=== PATIENT | male | born 1980 | race African-American/Black ===

== ENCOUNTER 2021-09-04 18:05 | Emergency (ER) | payer OTHER ==
[~2021-09-04] VITALS: Ht 170.2 cm; Wt 111.4 kg
[2021-09-04] MEDS ORDERED: HYDROCODONE/APAP 5MG-325MG TAB PO ONE (18:45)
[2021-09-04] MEDS ORDERED: HYDROCODONE/APAP 5MG-325MG TAB ONE (19:07)
[2021-09-04] MEDS ORDERED: CEFTRIAXONE 1 GM VIAL IV ONE (20:15)
[2021-09-04] MEDS ORDERED: FLUOCINONIDE15 GM TOP (20:35)
[2021-09-04] MEDS ORDERED: AUGMENTIN 500-1 EACH PO (20:35)
[2021-09-04] MEDS ORDERED: BACTRIM DS TAB1 EACH PO (20:35)
[2021-09-04] MEDS ORDERED: KETOROLAC TROME10 MG PO (20:39)
[2021-09-04] MEDS ORDERED: CEFTRIAXONE 1 GM VIAL ONE (20:46)
[2021-09-04 21:00] VITALS: BP 149/96
== END 2021-09-04 21:00 | disposition home or self-care (01) ==
LOC: FSED 18:05
DX: L03.115 Cellulitis of right lower limb (principal); M79.89 Other specified soft tissue disorders; I10 Essential (primary) hypertension; E78.5 Hyperlipidemia, unspecified
CPT/HCPCS: 80053; 85025; 93971; 99284; J0696

== ENCOUNTER 2022-05-05 20:21 | Emergency (ER) | payer OTHER ==
[~2022-05-05] VITALS: Ht 170.2 cm; Wt 111.1 kg
[~2022-05-05 20:21] MED LIST: AUGMENTIN 500-1 EACH PO; BACTRIM DS TAB1 EACH PO; FLUOCINONIDE15 GM TOP; KETOROLAC TROME10 MG PO
[2022-05-05] MEDS ORDERED: METHYLPREDNISOLO4 M1 PO (20:48)
[2022-05-05] MEDS ORDERED: HYDROXYZINE HCL25 MG PO (20:48)
== END 2022-05-05 20:57 | disposition home or self-care (01) ==
LOC: FSED 20:24
DX: R21 Rash and other nonspecific skin eruption (principal); T78.40XA Allergy, unspecified, initial encounter; I10 Essential (primary) hypertension; E78.5 Hyperlipidemia, unspecified
CPT/HCPCS: 99282